=== PATIENT | female | born 1975 | race American Indian/Alaskan Native ===

== ENCOUNTER 2019-02-13 09:21 | Emergency (ER) | payer SELFPAY ==
[2019-02-13 10:18] LABS: Bilirubin,Urine NEG (Negative); Blood,Urine NEG (Negative); Color,Urine Yellow (Yellow); Protein,Urine <15 mg/dL mg/dL (Negative); Urobilinogen,Urine < 2.0 mg/dL (<2.0)
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
[2019-02-13 11:20] LABS: Mean Corpuscular HGB Conc 30 % (30-34); Platelet Count 533 K/mm3 (140-440); Red Blood Count 4.66 M/mm3 (3.65-5.03)
[2019-02-13 11:30] LABS: BUN/Creatinine Ratio 8; Blood Urea Nitrogen 5 mg/dL (7-17); Calcium 9.5 mg/dL (8.4-10.2); Hemolysis Index 48
[2019-02-13 11:44] LABS: Hematocrit 29.2 % (30.3-42.9); Hemoglobin 8.7 gm/dl (10.1-14.3)
[2019-02-13 11:45] LABS: Mean Corpuscular Volume 63 fl (79-97); Red Cell Distribution Width 22.1 % (13.2-15.2)
[2019-02-13 13:02] VITALS: BP 107/67
[2019-02-13 15:12] LABS: Anisocytosis 2+; Hypochromasia 2+; Platelet Estimate Consistent w Auto; Total Cells Counted 100
== END 2019-02-13 13:02 | disposition home or self-care (01) ==
LOC: ED 09:21
DX: K21.9 Gastro-esophageal reflux disease without esophagitis (principal); K62.5 Hemorrhage of anus and rectum; F17.200 Nicotine dependence, unspecified, uncomplicated; Z88.0 Allergy status to penicillin; Z88.8 Allergy status to other drugs, medicaments and biological substances
CPT/HCPCS: 36415; 80048; 81001; 85007; 85025

== ENCOUNTER 2021-08-30 11:38 | Emergency (ER) | payer SELFPAY ==
[2021-08-30] MEDS ORDERED: KETOROLAC 30 MG/1 ML INJ IM ONE (12:04)
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
[2021-08-30 13:23] VITALS: BP 137/77
== END 2021-08-30 13:24 | disposition home or self-care (01) ==
LOC: ED 11:38
DX: M25.532 Pain in left wrist (principal); M79.642 Pain in left hand; F17.200 Nicotine dependence, unspecified, uncomplicated; Z88.6 Allergy status to analgesic agent; Z88.0 Allergy status to penicillin; Z79.899 Other long term (current) drug therapy; Z98.890 Other specified postprocedural states
CPT/HCPCS: 29125; 96372; 99283; J1885; 99281